=== PATIENT | male | born 1990 | race Caucasian/White ===

== ENCOUNTER 2017-04-02 08:40 | Outpatient (RCR) | payer BC, OTHER ==
[2017-03-09 15:14] LABS: ABSOLUTE RETIC # 86 10e9/L (24-90); BASOPHILS % (AUTO) 1 % (0-10); EOSINOPHILS # (AUTO) 0.1 10^3/uL (0.0-0.3); EOSINOPHILS % (AUTO) 2 % (0-10); HEMATOCRIT 40 % (40-54); HEMOGLOBIN 13.1 G/DL (13.3-17.7); LYMPHOCYTES # (AUTO) 1.4 X 10^3 (1.0-4.0); LYMPHOCYTES % (AUTO) 23 % (12-44); MEAN CORPUSCULAR HEMOGLOBIN 20 PG (25-34); MEAN CORPUSCULAR HGB CONC 33 G/DL (32-36); MEAN CORPUSCULAR VOLUME 59 FL (80-99); MEAN PLATELET VOLUME 9.4 FL (7.4-10.4); MONOCYTES # (AUTO) 0.4 X 10^3 (0.0-1.0); MONOCYTES % (AUTO) 7 % (0-12); NEUTROPHILS % (AUTO) 67 % (42-75); PLATELET COUNT 304 10^3/uL (130-400); RED CELL DISTRIBUTION WIDTH 18.5 % (10.0-14.5); RETICULOCYTE % 1.29 % (0.50-2.40); WHITE BLOOD COUNT 5.9 10^3/uL (4.3-11.0)
[2017-03-09 15:32] LABS: ALANINE AMINOTRANSFERASE 27 U/L (0-55); ALBUMIN 4.6 GM/DL (3.2-4.5); ALKALINE PHOSPHATASE 47 U/L (40-136); BILIRUBIN,TOTAL 0.7 MG/DL (0.1-1.0); BUN/CREATININE RATIO 11; CALCIUM 9.3 MG/DL (8.5-10.1); CARBON DIOXIDE 27 MMOL/L (21-32); CHLORIDE 104 MMOL/L (98-107); CREATININE SERUM 0.91 MG/DL (0.60-1.30); GFR ESTIMATED > 60; GLUCOSE 88 MG/DL (70-105); POTASSIUM 3.8 MMOL/L (3.6-5.0); SODIUM 138 MMOL/L (135-145); TOTAL PROTEIN 7.5 GM/DL (6.4-8.2)
[~2017-04-02 08:40] MED LIST: DICY20TA57 PO; IBUPROFEN
== END 2017-06-07 | disposition home or self-care (01) ==
LOC: ONC 08:40
PROVIDERS: ATTEND Internal Medicine Hematology & Oncology
DX: D56.3 Thalassemia minor (principal); R53.83 Other fatigue; R06.83 Snoring; Z87.891 Personal history of nicotine dependence
CPT/HCPCS: 80053; 82728; 83020; 83540; 83615; 83883; 84155; 84165; 85025; 85045; 99213; 99214

== ENCOUNTER 2018-01-08 12:07 | Emergency (ER) | payer BC ==
[~2018-01-08] VITALS: Ht 182.9 cm; Wt 86.2 kg
--- NOTE | 2018-01-08 12:25 | ED GI ---
General Chief Complaint: Rect Problems Stated Complaint: RECTAL BLEEDING;HANDS NUMB Source of Information: Patient, EMS Notes Reviewed History of Present Illness Date Seen by Provider: Jan 08, 2018 Time Seen by Provider: 12:21 Initial Comments The patient is a 27-year-old white male who presents by ambulance. He reports he has had hemorrhoids for some time including some bleeding. This morning he had noted a very large hemorrhoid which then burst and bled what he considered to be a large amount. This included clot. He has never seen any medical provider for this problem. Timing/Duration: 1-3 Hours Severity/Quality: Moderate Location: Unknown, Other (anal) Allergies and Home Medications Allergies Coded Allergies: No Known Drug Allergies (Unverified , 12/15/10) Home Medications Dicyclomine Hcl 20 Mg Tablet, 1 EACH PO QID PRN Prescribed by: MANUELA LAINEZ on 11/10/111936 Patient Home Medication List Home Medication List Reviewed: Yes Review of Systems Review of Systems Constitutional: see HPI EENTM: No Symptoms Reported Respiratory: No Symptoms Reported Cardiovascular: No Symptoms Reported Gastrointestinal: See HPI Genitourinary: No Symptoms Reported Musculoskeletal: no symptoms reported Skin: no symptoms reported Psychiatric/Neurological: No Symptoms Reported Endocrine: No Symptoms Reported, Excessive Sweating Hematologic/Lymphatic: No Symptoms Reported Physical Exam Vital Signs Vital Signs - First Documented 01/08/18 12:18 Temp 98.8 Pulse 73 Resp 22 B/P (MAP) 121/90 (100) Pulse Ox 100 Capillary Refill : Height/Weight/BMI Height: '" Weight: lbs. oz. kg; BMI Method:Stated General Appearance: mild distress, moderate distress HEENT: normal ENT inspection Neck: full range of motion Respiratory: chest non-tender, lungs clear, normal breath sounds, no respiratory distress, no accessory muscle use Cardiovascular: normal peripheral pulses, regular rate, rhythm, no edema, no gallop, no JVD, no murmur Gastrointestinal: normal bowel sounds, non tender, soft, no organomegaly, no pulsatile mass Extremities: normal range of motion, non-tender, normal inspection Exam Comments There is a slow ooze of blood in the gluteal cleft at the anus. Digital exam shows a 2 chambered clot at 9 o'clock on the anus. Digital exam higher shows no evidence of additional difficulties. Progress/Results/Core Measures Results/Orders Lab Results Laboratory Tests Test 01/08/18 12:35 Range/Units White Blood Count 5.1 4.3-11.0 10^3/uL Red Blood Count 6.60 H 4.35-5.85 10^6/uL Hemoglobin 12.6 L 13.3-17.7 G/DL Hematocrit 38 L 40-54 % Mean Corpuscular Volume 57 L 80-99 FL Mean Corpuscular Hemoglobin 19 L 25-34 PG Mean Corpuscular Hemoglobin Concent 33 32-36 G/DL Red Cell Distribution Width 17.7 H 10.0-14.5 % Platelet Count 356 130-400 10^3/uL Mean Platelet Volume 9.8 7.4-10.4 FL Neutrophils (%) (Auto) 63 42-75 % Lymphocytes (%) (Auto) 29 12-44 % Monocytes (%) (Auto) 6 0-12 % Eosinophils (%) (Auto) 2 0-10 % Basophils (%) (Auto) 1 0-10 % Neutrophils # (Auto) 3.2 1.8-7.8 X 10^3 Lymphocytes # (Auto) 1.5 1.0-4.0 X 10^3 Monocytes # (Auto) 0.3 0.0-1.0 X 10^3 Eosinophils # (Auto) 0.1 0.0-0.3 10^3/uL Basophils # (Auto) 0.0 0.0-0.1 10^3/uL Sodium Level 140 135-145 MMOL/L Potassium Level 3.4 L 3.6-5.0 MMOL/L Chloride Level 104 98-107 MMOL/L Carbon Dioxide Level 23 21-32 MMOL/L Anion Gap 13 5-14 MMOL/L Blood Urea Nitrogen 8 7-18 MG/DL Creatinine 1.05 0.60-1.30 MG/DL Estimat Glomerular Filtration Rate > 60 BUN/Creatinine Ratio 8 Glucose Level 109 H 70-105 MG/DL Calcium Level 9.8 8.5-10.1 MG/DL Corrected Calcium 8.5-10.1 MG/DL Total Bilirubin 1.0 0.1-1.0 MG/DL Aspartate Amino Transf (AST/SGOT) 27 5-34 U/L Alanine Aminotransferase (ALT/SGPT) 29 0-55 U/L Alkaline Phosphatase 59 40-136 U/L Total Protein 8.4 H 6.4-8.2 GM/DL Albumin 4.9 H 3.2-4.5 GM/DL My Orders Orders - SEYMOUR BARBA MD Cbc With Automated Diff (01/08/18 13:07) Comprehensive Metabolic Panel (01/08/18 13:07) Lidocaine 1% Inj 20 Ml (Xylocaine 1% Inj (01/08/18 13:42) Vital Signs/I&O 01/08/18 12:18 Temp 98.8 Pulse 73 Resp 22 B/P (MAP) 121/90 (100) Pulse Ox 100 Departure Communication (Admissions) [address] Arce by phone. He allowed he would come to the emergency room to examine the patient. 1338 Dr. Arce arrived. 1348 after examination reports that he will perform in unit removal of remaining thrombus. Impression Primary Impression: thrombosed hemorrhoids Disposition: HOME, SELF-CARE Condition: Improved Departure-Patient Inst. Decision time for Depature: 14:33 Referrals: CHUCK JAVIER DO (PCP) Primary Care Physician Patient Instructions: Hemorrhoids (DC) Add. Discharge Instructions: All discharge instructions reviewed with patient and/or family. Voiced understanding. Expect rectal bleeding which will declined by the day. Call Dr. Arce's office, [phone], for appointment in the office next week. SEYMOUR BARBA MD Jan 08, 2018 12:25
[2018-01-08 13:15] LABS: BASOPHILS % (AUTO) 1 % (0-10); EOSINOPHILS # (AUTO) 0.1 10^3/uL (0.0-0.3); EOSINOPHILS % (AUTO) 2 % (0-10); HEMATOCRIT 38 % (40-54); HEMOGLOBIN 12.6 G/DL (13.3-17.7); LYMPHOCYTES # (AUTO) 1.5 X 10^3 (1.0-4.0); LYMPHOCYTES % (AUTO) 29 % (12-44); MEAN CORPUSCULAR HEMOGLOBIN 19 PG (25-34); MEAN CORPUSCULAR HGB CONC 33 G/DL (32-36); MEAN CORPUSCULAR VOLUME 57 FL (80-99); MEAN PLATELET VOLUME 9.8 FL (7.4-10.4); MONOCYTES # (AUTO) 0.3 X 10^3 (0.0-1.0); MONOCYTES % (AUTO) 6 % (0-12); NEUTROPHILS # (AUTO) 3.2 X 10^3 (1.8-7.8); NEUTROPHILS % (AUTO) 63 % (42-75); PLATELET COUNT 356 10^3/uL (130-400); RED CELL DISTRIBUTION WIDTH 17.7 % (10.0-14.5); WHITE BLOOD COUNT 5.1 10^3/uL (4.3-11.0)
[2018-01-08 13:27] LABS: ALANINE AMINOTRANSFERASE 29 U/L (0-55); ALBUMIN 4.9 GM/DL (3.2-4.5); ALKALINE PHOSPHATASE 59 U/L (40-136); BUN/CREATININE RATIO 8; CALCIUM 9.8 MG/DL (8.5-10.1); CARBON DIOXIDE 23 MMOL/L (21-32); CHLORIDE 104 MMOL/L (98-107); CREATININE SERUM 1.05 MG/DL (0.60-1.30); GFR ESTIMATED > 60; GLUCOSE 109 MG/DL (70-105); POTASSIUM 3.4 MMOL/L (3.6-5.0); SODIUM 140 MMOL/L (135-145); TOTAL PROTEIN 8.4 GM/DL (6.4-8.2)
[2018-01-08] MEDS ORDERED: LIDOCAINE 1% INJ 20 ML 20 ML VIAL ONE (13:42)
--- NOTE | 2018-01-08 13:55 | Consultation ---
History of Present Illness History of Present Illness Patient Consulted On(catalina/time) 01/08/18 13:50 Time Seen by Provider: 13:29 History of Present Illness Surgery asked to consult regarding rectal pain and bleeding. HPI per ER: The patient is a 27-year-old white male who presents by ambulance. He reports he has had hemorrhoids for some time including some bleeding. This morning he had noted a very large hemorrhoid which then burst and bled what he considered to be a large amount. This included clot. He has never seen any medical provider for this problem. Timing/Duration: 1-3 Hours Severity/Quality: Moderate Location: Unknown, Other (anal) When I spoke to pt he states he has had the "external lump" for about a week and this morning it "burst". He states he has never had this problem before. Pain is rated as 4 out of 10, on a 1-10 scale. His main complaint is of the blood covering his bottom. He does still feel like there "is something down there still". Allergies and Home Medications Allergies Coded Allergies: No Known Drug Allergies (Unverified , 12/15/10) Home Medications Dicyclomine Hcl 20 Mg Tablet, 1 EACH PO QID PRN Prescribed by: MANUELA LAINEZ on 11/10/111936 Patient Home Medication List Home Medication List Reviewed: Yes Past Oznqvqi-Tyjcnm-Xnbsvw Hx Patient Social History Alcohol Use: Rarely Uses Recreational Drug Use: No Smoking Status: Never a Smoker Recent Foreign Travel: No Contact w/Someone Who Travel: No Recent Infectious Disease Expo: No Surgeries History of Surgeries: No Respiratory History of Respiratory Disorde: No Cardiovascular History of Cardiac Disorders: No Neurological History of Neurological Disord: No Reproductive System Hx Reproductive Disorders: No Sexually Transmitted Disease: No HIV/AIDS: No Genitourinary History of Genitourinary Disor: No Gastrointestinal History of Gastrointestinal Di: No Musculoskeletal History of Musculoskeletal Dis: No Endocrine History of Endocrine Disorders: No HEENT History of HEENT Disorders: No Loss of Vision: Denies Hearing Impairment: Denies Cancer History of Cancer: No Psychosocial History of Psychiatric Problem: No Integumentary History of Skin or Integumenta: No Blood Transfusions History of Blood Disorders: Yes (Thalasemia minor) Family Medical History Significant Family History: Hypertension (both parents) Review of Systems-General Constitutional: No chills, No diaphoresis, No malaise EENTM: No blurred vision, No mouth pain, No mouth swelling, No epistaxis, No throat swelling Respiratory: No cough, No dyspnea on exertion, No hemoptysis Cardiovascular: No chest pain, No edema, No palpitations Gastrointestinal: No abdominal pain; constipation; No loss of appetite, No nausea, No vomiting Genitourinary: No dysuria, No frequency, No hematuria Musculoskeletal: No back pain, No joint pain, No muscle stiffness Skin: No change in color, No change in hair/nails Psychiatric/Neurological: Denies Anxiety, Denies Depressed, Denies Seizure, Denies Tremors Other pt denies any heat or cold intolerance Physical Exam-General Problems Physical Exam Vital Signs Vital Signs - First Documented 01/08/18 12:18 Temp 98.8 Pulse 73 Resp 22 B/P (MAP) 121/90 (100) Pulse Ox 100 Capillary Refill : Less Than 3 Seconds General Appearance: WD/WN, mild distress (secondary to pain) HEENT: pharynx normal; No scleral icterus (R), No scleral icterus (L), No pale conjunctivae (R), No pale conjunctivae (L) Neck: non-tender, full range of motion, supple, normal inspection Respiratory: chest non-tender, lungs clear, normal breath sounds, no respiratory distress, no accessory muscle use Cardiovascular: regular rate, rhythm, no edema, no gallop, no JVD, no murmur Gastrointestinal: normal bowel sounds, non tender, soft, no organomegaly, no pulsatile mass, other (pt has thrombosed ext. 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, no motor/sensory deficits, alert, normal mood/affect, oriented x 3 Skin: normal color, warm/dry Lymphatic: no adenopathy (neck, axilla or groin) Data Review Labs Laboratory Tests 01/08/18 12:35: White Blood Count 5.1, Red Blood Count 6.60H, Hemoglobin 12.6L, Hematocrit 38L, Mean Corpuscular Volume 57L, Mean Corpuscular Hemoglobin 19L, Mean Corpuscular Hemoglobin Concent 33, Red Cell Distribution Width 17.7H, Platelet Count 356, Mean Platelet Volume 9.8, Neutrophils (%) (Auto) 63, Lymphocytes (%) (Auto) 29, Monocytes (%) (Auto) 6, Eosinophils (%) (Auto) 2, Basophils (%) (Auto) 1, Neutrophils # (Auto) 3.2, Lymphocytes # (Auto) 1.5, Monocytes # (Auto) 0.3, Eosinophils # (Auto) 0.1, Basophils # (Auto) 0.0, Sodium Level 140, Potassium Level 3.4L, Chloride Level 104, Carbon Dioxide Level 23, Anion Gap 13, Blood Urea Nitrogen 8, Creatinine 1.05, Estimat Glomerular Filtration Rate > 60, BUN/ Creatinine Ratio 8, Glucose Level 109H, Calcium Level 9.8, Corrected Calcium , Total Bilirubin 1.0, Aspartate Amino Transf (AST/SGOT) 27, Alanine Aminotransferase (ALT/SGPT) 29, Alkaline Phosphatase 59, Total Protein 8.4H, Albumin 4.9H Assessment/Plan Assessment/Plan Assessment/Plan Thrombosed External Hemorrhoid Plan is to do I&D in ER and then send pt home. He will need to do sitz baths and make sure it stays open for a day or so. Oral ibuprofen or tylenol should be all he needs for pain. Consent obtained and will do that now. All questions answered to his satisfaction. TESS CHO DO Jan 08, 2018 13:55
--- NOTE | 2018-01-08 14:30 | Progress Note-Post Operative ---
Post-Operative Progess Note Surgeon (s)/Mold Filler (s) Surgeon TESS CHO DO Mold Filler: none Pre-Operative Diagnosis Thrombosed Ext Hemorrhoid Post-Operative Diagnosis Same Procedure & Operative Findings Date of Procedure 01/08/18 Procedure Performed/Findings I&D thrombosed external hemorrhoid Anesthesia Type local lidocaine Estimated Blood Loss Estimated blood loss (mL): scant Specimens/Packing Specimens Removed clots and portion of vein TESS CHO DO Jan 08, 2018 14:30
[2018-01-08 15:00] VITALS: BP 120/85
--- NOTE | 2018-01-08 20:12 | OPERATIVE REPORT ---
DATE OF SERVICE: 01/08/2018 PREOPERATIVE DIAGNOSIS: Thrombosed external hemorrhoid. POSTOPERATIVE DIAGNOSIS: Thrombosed external hemorrhoid. PROCEDURE: Incision and drainage of thrombosed external hemorrhoid with removal of clot and a portion of vein. SURGEON: Ramana Arce DO. AIRLINE OPERATIONS AGENT: None. ANESTHESIA: Just local lidocaine. BLOOD LOSS: Scant. FLUIDS: None. SPECIMEN: Blood clot and a portion of vein. INDICATION FOR PROCEDURE: The patient is a 27-year-old male who had a large lump in the rectal area, reports he has had pain in this area for about a week and then he states today it burst and he was noted to have a thrombosed external hemorrhoid. FINDINGS: Thrombosed external hemorrhoid, removed clots and vein. PROCEDURE NOTE: After informed consent was obtained, the patient was in the ER bed. He was laid on his side in a lateral decubitus position. He was then sterilely prepped and draped in normal fashion. Local lidocaine was used to infiltrate the skin directly over the thrombosed external hemorrhoid and then using a #12 blade, I made an incision through the skin into the subcutaneous tissue, immediately got some blood clot out, and then with the use of a hemostat, I continued to remove clot and vein until there was no blood clot left in this thrombosed hemorrhoid. There was a minimal bleeding from the skin edges and from the inside. Area was cleaned and dried and then packed, I just put some 4 x 4's to control the bleeding. The patient tolerated this procedure well and he was sent home, told he could use 4 x 4's or he could get feminine hygiene pads to hold, to catch the bleeding, He should do sitz baths and to follow up in a couple days to make sure it is doing okay. He can come back. If there are any other problems between now and then, come to the ER. He had no questions. Job ID: [id number] DocumentID: [id number] Dictated Date: 01/08/2018 14:59:31 Differential Specialist Date: 01/08/2018 20:12:03 Dictated By: RAMANA ARCE DO [facility]
--- OUTSIDE RECORDS SUMMARY | 2018-01-09 05:24 | XMS REPORT ---
Author Author RAUL CHRISTINE Organization [employer] Address Unknown Phone Unavailable Care Team Providers Care Jewel Inspector Name Role Phone RAUL CHRISTINE CP Unavailable Allergies No Known Allergies Problems Problem Type Condition ICD-9 Code Onset Dates Condition Status Problem Insomnia, unspecified 780.52 Active Problem Screening examination for venereal disease V74.5 Active Problem Unspecified chlamydial infection, in conditions classified elsewhere and of unspecified site 079.98 Active Problem Urethral discharge 788.7 Active Medications No Known Medications Results No Known Results Summary Purpose [employer] Submission
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
== END 2018-01-08 15:00 | disposition home or self-care (01) ==
LOC: EDUNIT# 12:07 → ER 12:08
DX: K64.5 Perianal venous thrombosis (principal); Z87.19 Personal history of other diseases of the digestive system
CPT/HCPCS: 36415; 80053; 85025; 99282